=== PATIENT | male | born 1980 | race Caucasian/White ===

== ENCOUNTER 2020-01-11 08:28 | Emergency (ER) | payer MEDICAID, SELFPAY ==
--- NOTE | 2020-01-11 08:32 | W.ED.GENAD ---
Discharge Plan Disposition Patient Disposition: HOME Condition: Good Discharge Details Chief Complaint: DentalOral Clinical Impression: Abscess, dental, Fracture of tooth Primary Care Provider: None,None ED Provider: Lupe Ware Home Meds and New Rx's Prescriptions: New amoxicillin-pot clavulanate [Augmentin] 875-125 mg tablet 1 tab PO BID Qty: 13 RF: 0 Continued epinephrine [EpiPen] 0.3 mg/0.3 mL Auto-Injector 0.3 mg IM PRN PRNRF: 0 Discharge Instructions Instructions: Dental Abscess (ED) Additional Instructions: Encourage water intake. Please continue to brush her teeth regularly. You have an abscess that was drained today. Please take the antibiotics as prescribed. You are given your first dose here this morning. Next dose will be due this evening. You may continue with Tylenol and/or ibuprofen as needed for discomfort. Please contact dentist tomorrow to schedule prompt follow-up appointment. If you develop fever/chills, increased swelling or other new/worsening symptoms please seek care urgently once again. Referrals: Darlyn Zaragoza [ NON-[facility] STAFF PHYSICIAN] - Medical Decision Making Patient is a pleasant 39-year-old gentleman presents today with chief complaint of right lower dental pain. He reports the pain began approximately 2 days ago. Is now noted area of swelling along the lingual side of afflicted dentition. He reports that the affected tooth has fractured historically and sounds to have worsened in recent days. He denies any fevers or chills. No radiating pain. Reports that he has not received dental care in several years. Does state that recently has begun brushing his teeth more. States the pain increases with eating denies pain with swallowing. On exam, patient appears nontoxic. He has a focal area of swelling with fluctuance discomfort along the lingual side of the #230 tooth. No pain along the buccal aspect. #30 tooth is fractured on the posterior aspect resection missing. Posterior oropharynx is without abnormality. No sublingual swelling, trismus. Handling secretions well. Exam otherwise benign. Patient I discussed her/benefits as well as expected procedural steps of I&D of the abscess. He voiced understanding and wished to proceed. Please see procedure note. Patient tolerated this well and a good amount of thick purulent discharge was expressed from the abscess. Patient will be placed on Augmentin. He was given his first dose while here. He was given return precautions. List of local dentist as well as [facility]- dentist openings were given to the patient. All of his questions and concerns were addressed and he is in agreement this plan. HPI General Mode of arrival: ambulatory. Date/Time Provider Initiated Documentation: 01/11/20 08:32. Limitations to Documentation: no limitations. Information obtained by: patient and RN notes reviewed. History of Present Illness 39 year old M presents to the emergency department with the chief complaint of right lower dental pain and swelling, described as severe, with intensity rated at 10. Quality is described as aching, and is localized to the mouth. Patient reports no radiation. Patient started experiencing this day(s) (2) and it has been constant. No relieving factors improve symptom(s), No exacerbating factors reported . Patient notes no other symptoms.; denies cough, fever/chills, loss of appetite, nausea/vomiting and shortness of breath. Patient did receive the following treatments prior to arrival, NSAID Related Data Home Medications Medication Instructions Recorded Confirmed amoxicillin-pot clavulanate 1 tab PO BID #13 tab 01/11/20 [Augmentin] epinephrine [EpiPen] 0.3 mg IM PRN PRN 01/11/20 01/11/20 Previous Rx's Medication Instructions Recorded amoxicillin-pot clavulanate 1 tab PO BID #13 tab 01/11/20 [Augmentin] Allergies Allergy/AdvReac Type Severity Reaction Status Date / Time bee venom protein (honey bee) Allergy Anaphylaxsi Unverified 01/11/20 08:36 s haloperidol [From Haldol] Allergy Anaphylaxsi Unverified 01/11/20 08:36 s lithium Allergy Anaphylaxsi Unverified 01/11/20 08:36 s Review of Systems Constitutional Constitutional: Reports as per HPI, Denies chills, Denies fatigue, Denies fever(s), Denies headache(s) and Denies poor appetite Eyes Eyes: Denies change in vision and Denies irritation ENT Ears, Nose, Mouth, and Throat: Reports as per HPI, Reports dental pain, Denies dysphagia, Denies dizziness, Denies dry mouth, Denies ear discharge, Denies otalgia, Reports facial pain, Denies headache(s), Denies hoarseness, Denies lip swelling, Denies nasal congestion, Denies odynophagia and Denies sore throat Cardiovascular Cardiovascular: Reports as per HPI and Denies chest pain Respiratory Respiratory: Reports as per HPI and Denies cough Gastrointestinal Gastrointestinal: Reports as per HPI, Denies dysphagia, Denies nausea, Denies odynophagia and Denies vomiting Integumentary/Breasts Skin/Breast: Reports as per HPI, Denies erythema, Denies rash and Denies skin pain Neurologic Neurologic: Reports as per HPI, Denies dizziness and Denies headache(s) Endocrine Endocrine: Denies fatigue Allergic/Immunologic Allergic/Immunologic: Denies lip swelling [facility] Social History Smoking/Tobacco Use Status: Current every day Tobacco Type: cigarettes Alcohol Intake: never Drug use: Daily Substance use type: marijuana Do you feel safe at home: Yes Do you feel safe in your relationship?: Yes Exam Const General: cooperative, healthy appearing, comfortable, no acute distress, well developed and well groomed Nutritional Appearance: well nourished and obese Orientation: alert and awake [facility] Head: normal to inspection, normocephalic and atraumatic Ears: hearing grossly normal bilaterally, external ears normal and TM's normal bilaterally General nose exam: external nose normal and nares normal Face and sinus: normal facial exam, sinuses nontender and face symmetric Mouth: oral mucosae normal, lip normal, tongue normal, moist mucous membranes, no audible dysphonia, No mouth trauma, no muffled voice, normal tongue, no trismus and No restricted motion Teeth and gingiva: gingiva abnormal (focal area of 1cm swelling with fluctance along lingual side of #30 ) and poor dentition (fractured teeth, #30 near area of pain is fractured on posterior aspect) Throat: posterior oropharynx normal, tonsils normal and uvula midline Eyes General: appearance normal, both eyes and all related structures Neck Neck: normal visual inspection, full ROM, no lymphadenopathy, supple and no anterior neck swelling Resp Effort & Inspection: normal respiratory effort, able to speak in complete sentences and no respiratory distress Auscultation: clear to auscultation bilaterally, no rales, no rhonchi and no wheezes Cardio Rate: regular rate Rhythm: regular rhythm Heart Sounds: S1 normal and S2 normal Skin General skin exam: no rashes or lesions noted Trauma: no lacerations or abrasions Neuro General: patient alert and patient awake Cognition: normal cognition Speech: speech normal Gait: normal gait Psych Appearance: grossly normal and well kempt Mental Status: mental status grossly normal Speech and Movement: speech and movement normal Procedures Abscess I/D Site: Face (dental, right lower lingual side abutting #30) Side (if applicable): Right Sedation/analgesia: None Local Anesthetic: Lidocaine 1% Amount of anesthesia used (mL): 1 Technique: Needle Aspiration Amount of fluid expressed (mL): 2 Irrigation: No Packing used?: None
[2020-01-11 08:33] VITALS: BP 146/88; PULSE 79; RESP 18; TEMP 36.3; O2SAT 98
[2020-01-11] MEDS: Amoxicillin 875/Clav. 125 TAB PO (09:27)
[2020-01-11] MEDS: Benzocaine 20% Gel 30 GM JAR MM (09:27)
== END 2020-01-11 09:32 | disposition home or self-care (01) ==
LOC: ER 09:32
PROVIDERS: Emergency Provider Physician Assistant
DX: S02.5XXA Fracture of tooth (traumatic), initial encounter for closed fracture (principal); X58.XXXA Exposure to other specified factors, initial encounter; K04.7 Periapical abscess without sinus
CPT/HCPCS: 41800

== ENCOUNTER 2021-12-26 11:05 | Outpatient (REF) | payer MEDICAID, SELFPAY ==
[2021-12-26 17:09] LABS: ALT 49 U/L (16-63); AST 31 U/L (15-37); Albumin 4.3 g/dL (3.4-5.0); Alkaline Phosphatase 85 U/L (46-116); Anion Gap 10.6 mmol/L (3-11); BUN 12 mg/dL (7-18); Bilirubin, Total 0.8 mg/dL (0.2-1.0); CO2 24.4 mmol/L (21.0-32.0); Calcium 8.9 mg/dL (8.5-10.1); Calculated LDL 114 mg/dL (<100); Chloride 104 mmol/L (98-107); Cholesterol 157 mg/dL (<200); Glucose 91 mg/dL (74-106); HDL Cholesterol 28 mg/dL (40-60); Potassium 4.5 mmol/L (3.5-5.1); Sodium 139 mmol/L (136-145); TSH 1.73 uIU/mL (0.36-3.74); Total Protein 7.9 g/dL (6.4-8.2); Triglyceride 76 mg/dL (<150)
[2021-12-27 09:49] LABS: Hepatitis C Ab w Rflx HCV PCR Negative (Negative)
[2021-12-27 10:07] LABS: HIV-1/2 Ag & Ab Screen Negative (Negative)
== END 2021-12-26 11:06 | disposition home or self-care (01) ==
LOC: NCHCN 11:05
PROVIDERS: Visit Provider Nurse Practitioner Family
DX: Z13.29 Encounter for screening for other suspected endocrine disorder (principal); Z13.228 Encounter for screening for other metabolic disorders; Z13.220 Encounter for screening for lipoid disorders; Z11.4 Encounter for screening for human immunodeficiency virus [HIV]; Z11.59 Encounter for screening for other viral diseases; Z00.00 Encounter for general adult medical examination without abnormal findings
CPT/HCPCS: 80053; 80061; 86803; 87389; 84443

== ENCOUNTER 2022-10-23 17:09 | Outpatient (REF) | payer MEDICAID, SELFPAY ==
[2022-10-28 02:46] LABS: Methylphenidate Negative ng/mL (Cutoff: 10); Ritalinic Acid Negative ng/mL (Cutoff: 50)
== END 2022-10-23 17:10 | disposition home or self-care (01) ==
LOC: NCHCN 17:09
PROVIDERS: PCP Nurse Practitioner Family; Visit Provider Nurse Practitioner Family
DX: Z02.89 Encounter for other administrative examinations (principal); Z51.81 Encounter for therapeutic drug level monitoring
CPT/HCPCS: 80360

== ENCOUNTER 2022-12-18 18:26 | Outpatient (REF) | payer MEDICAID, SELFPAY ==
[2022-12-23 03:46] LABS: Methylphenidate 1836 ng/mL (Cutoff: 10); Ritalinic Acid 8711 ng/mL (Cutoff: 50)
== END 2022-12-18 18:27 | disposition home or self-care (01) ==
LOC: NCHCN 18:26
PROVIDERS: PCP Nurse Practitioner Family; Visit Provider Nurse Practitioner Family
DX: R82.5 Elevated urine levels of drugs, medicaments and biological substances (principal); Z51.81 Encounter for therapeutic drug level monitoring
CPT/HCPCS: 80360

== ENCOUNTER 2023-03-08 20:59 | Outpatient (REF) | payer MEDICAID, SELFPAY ==
[2023-03-13 11:15] LABS: Methylphenidate Negative ng/mL (Cutoff: 10); Ritalinic Acid Negative ng/mL (Cutoff: 50)
== END 2023-03-08 21:00 | disposition home or self-care (01) ==
LOC: NCHCN 20:59
PROVIDERS: PCP Nurse Practitioner Family; Visit Provider Nurse Practitioner Family
DX: F41.8 Other specified anxiety disorders (principal); Z51.81 Encounter for therapeutic drug level monitoring; F31.89 Other bipolar disorder; Z79.899 Other long term (current) drug therapy
CPT/HCPCS: 80360

== ENCOUNTER 2023-05-10 15:59 | Outpatient (REF) | payer MEDICAID, SELFPAY ==
[2023-05-15 09:32] LABS: Methylphenidate Negative ng/mL (Cutoff: 10); Ritalinic Acid Negative ng/mL (Cutoff: 50)
== END 2023-05-10 16:00 | disposition home or self-care (01) ==
LOC: NCHCN 15:59
PROVIDERS: PCP Nurse Practitioner Family; Visit Provider Nurse Practitioner Family
DX: F90.1 Attention-deficit hyperactivity disorder, predominantly hyperactive type (principal); Z79.899 Other long term (current) drug therapy
CPT/HCPCS: 80360

== ENCOUNTER 2023-06-07 17:30 | Outpatient (REF) | payer MEDICAID, SELFPAY ==
[2023-06-12 02:52] LABS: Methylphenidate 6988 ng/mL (Cutoff: 10); Ritalinic Acid 24690 ng/mL (Cutoff: 50)
== END 2023-06-07 17:31 | disposition home or self-care (01) ==
LOC: NCHCN 17:30
PROVIDERS: PCP Nurse Practitioner Family; Visit Provider Nurse Practitioner Family
DX: F90.1 Attention-deficit hyperactivity disorder, predominantly hyperactive type (principal); Z02.89 Encounter for other administrative examinations
CPT/HCPCS: 80360

== ENCOUNTER 2023-09-06 12:59 | Outpatient (REF) | payer MEDICAID, SELFPAY ==
[2023-09-06 16:08] LABS: Abs Immature Grans 0.11 10^3/uL (0.0-0.06); Absolute Basophil Count 0.12 10^3/uL (0.0-0.2); Absolute Eosinophil Count 0.22 10^3/uL (0.0-0.7); Absolute Lymphocyte Count 3.08 10^3/uL (1.2-3.4); Absolute Monocyte Count 1.01 10^3/uL (0.1-0.8); Absolute Neutrophil Count 5.14 10^3/uL (1.2-6.7); Basophils % 1.2; Eosinophils % 2.3; HCT 47.2 % (40.0-50.0); HGB 16.3 g/dL (13.5-17.5); Immature Grans % 1.1; Lymphocytes % 31.8; MCH 32.9 pg (27.0-33.0); MCHC 34.5 % (32.0-36.0); MCV 95 fL (80-95); MPV 9.7 fL (8.0-11.0); Monocytes % 10.4; Neutrophils % 53.2; Platelet Count 258 10^3/uL (130-400); RBC 4.96 10^6/uL (4.36-5.78); RDW-SD 41.3 fL; WBC 9.68 10^3/uL (4.4-10.8)
[2023-09-06 17:08] LABS: ALT 42 U/L (16-63); AST 26 U/L (15-37); Albumin 3.8 g/dL (3.4-5.0); Alkaline Phosphatase 62 U/L (46-116); Anion Gap 9.1 mmol/L (3-11); BUN 9 mg/dL (7-18); Bilirubin, Total 0.5 mg/dL (0.2-1.0); CO2 26.9 mmol/L (21.0-32.0); Chloride 103 mmol/L (98-107); Estimated GFR 95.77 (mL/min/1.73m2); Glucose 78 mg/dL (74-106); Lipase 31 U/L (16-77); Potassium 4.5 mmol/L (3.5-5.1); Sodium 139 mmol/L (136-145); Total Protein 7.6 g/dL (6.4-8.2)
[2023-09-06 17:19] LABS: Calcium 9.1 mg/dL (8.5-10.1); Calculated LDL 115 mg/dL (<100); Cholesterol 193 mg/dL (<200); HDL Cholesterol 36 mg/dL (40-60); Triglyceride 212 mg/dL (<150)
== END 2023-09-06 13:00 | disposition home or self-care (01) ==
LOC: NCHCN 12:59
PROVIDERS: PCP Nurse Practitioner Family; Visit Provider Nurse Practitioner Family
DX: R10.12 Left upper quadrant pain (principal); Z13.220 Encounter for screening for lipoid disorders; R79.89 Other specified abnormal findings of blood chemistry
CPT/HCPCS: 80053; 80061; 83690; 85025

== ENCOUNTER 2025-01-06 16:14 | Outpatient (REF) | payer MEDICAID, SELFPAY ==
[2025-01-06 17:19] LABS: Anion Gap 8.6 mmol/L (3-11); BUN 13 mg/dL (7-18); CO2 27.4 mmol/L (21.0-32.0); CREATININE 0.8 mg/dL (0.70-1.30); Chloride 105 mmol/L (98-107); Estimated GFR 111.92 (mL/min/1.73m2); Glucose 88 mg/dL (74-106); Potassium 4.1 mmol/L (3.5-5.1); Sodium 141 mmol/L (136-145)
[2025-01-06 17:23] LABS: Hemoglobin A1C 5.3 % (<5.7)
== END 2025-01-06 16:15 | disposition home or self-care (01) ==
LOC: NCHCN 16:14
PROVIDERS: PCP Nurse Practitioner Family; Visit Provider Family Medicine
DX: R45.0 Nervousness (principal)
CPT/HCPCS: 80048; 83036

== ENCOUNTER 2025-05-07 10:27 | Outpatient (REF) | payer MEDICAID, SELFPAY ==
[2025-05-07 14:32] LABS: Hemoglobin A1C 5.0 % (<5.7)
[2025-05-07 14:48] LABS: ALT 43 U/L (16-63); AST 21 U/L (15-37); Albumin 3.9 g/dL (3.4-5.0); Alkaline Phosphatase 65 U/L (46-116); Anion Gap 8.2 mmol/L (3-11); BUN 14 mg/dL (7-18); Bilirubin, Total 0.5 mg/dL (0.2-1.0); CO2 29.8 mmol/L (21.0-32.0); Calcium 8.7 mg/dL (8.5-10.1); Calculated LDL 111 mg/dL (<100); Chloride 103 mmol/L (98-107); Cholesterol 156 mg/dL (<200); Estimated GFR 108.01 (mL/min/1.73m2); Glucose 98 mg/dL (74-106); HDL Cholesterol 29 mg/dL (>or=40); Potassium 4.6 mmol/L (3.5-5.1); Sodium 141 mmol/L (136-145); Total Protein 7.3 g/dL (6.4-8.2); Triglyceride 84 mg/dL (<150)
== END 2025-05-07 10:28 | disposition home or self-care (01) ==
LOC: NCHCN 10:27
PROVIDERS: PCP Nurse Practitioner Family; Visit Provider Family Medicine
DX: Z68.36 Body mass index [BMI] 36.0-36.9, adult (principal)
CPT/HCPCS: 80053; 80061; 83036